=== PATIENT | female | born 1960 | race African-American/Black ===

== ENCOUNTER 2020-06-16 12:54 | Emergency (ER) | payer MEDICARE, MEDICAID ==
[~2020-06-16] VITALS: Ht 165.1 cm; Wt 64.0 kg
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
[2020-06-16] MEDS: IV NORMAL SALINE 1000ML BAG 1,000 ML IV ONE (15:47)
[2020-06-16 15:48] VITALS: BP 101/65
[2020-06-16] MEDS: MIDAZOLAM HCL/PF 5 MG/5 ML VIAL. NS ONE (15:49)
[2020-06-16] MEDS: ONDANSETRON PF 4 MG/2 ML VIAL. IVP ONE (15:49)
[2020-06-16] MEDS: PROPOFOL 10 MG/ML (20ML) VIAL. IV ONE (15:54)
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
--- NOTE | 2020-06-16 17:10 | RAD ---
SHOULDER 2+V LEFT 06/16/2020 4:23 PM INDICATION: Left shoulder dislocation COMPARISON: Left shoulder radiograph 06/16/2020. TECHNIQUE: 2 views left shoulder are provided. FINDINGS/ IMPRESSION: 1. Interval reduction of the left glenohumeral joint. Moderate osteoporosis with joint space narrowing and marginal osteophytosis of the left glenohumeral joint. 2. No acute fracture. Electronically signed by: Elvi Randall MD (06/16/2020 5:07 PM) [facility]
[2020-06-16 17:29] VITALS: BP 114/80
== END 2020-06-16 18:03 | disposition home or self-care (01) ==
LOC: ER 12:54
DX: S43.005A Unspecified dislocation of left shoulder joint, initial encounter (principal); E78.00 Pure hypercholesterolemia, unspecified; I10 Essential (primary) hypertension; E11.9 Type 2 diabetes mellitus without complications; F17.200 Nicotine dependence, unspecified, uncomplicated; Z86.73 Personal history of transient ischemic attack (TIA), and cerebral infarction without residual deficits; W18.39XA Other fall on same level, initial encounter; Y93.89 Activity, other specified; Y92.89 Other specified places as the place of occurrence of the external cause; Y99.8 Other external cause status
CPT/HCPCS: 23650; 73030; 96361; 96374; 99285; J2250; J2405; J2704; J7030

== ENCOUNTER 2020-11-17 15:59 | Emergency (ER) | payer OTHER, MEDICARE, MEDICAID ==
[~2020-11-17] VITALS: Ht 165.1 cm; Wt 65.0 kg
[2020-11-17 17:35] VITALS: BP 100/63
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
[2020-11-17] MEDS ORDERED: ORPH100T PO (18:25)
[2020-11-17] MEDS ORDERED: AZIT250T6 PO (18:25)
[2020-11-17] MEDS ORDERED: ACET1TAB33 PO (18:25)
--- NOTE | 2020-11-18 12:31 | NUR ---
IP: Informed pt of negative COVID test. Pt verbalized understanding.
== END 2020-11-17 18:50 | disposition home or self-care (01) ==
LOC: ER 15:59
DX: M54.2 Cervicalgia (principal); J18.9 Pneumonia, unspecified organism; E11.9 Type 2 diabetes mellitus without complications; E78.00 Pure hypercholesterolemia, unspecified; I10 Essential (primary) hypertension; I25.2 Old myocardial infarction; F17.290 Nicotine dependence, other tobacco product, uncomplicated; Z20.822 Contact with and (suspected) exposure to COVID-19; V43.52XA Car driver injured in collision with other type car in traffic accident, initial encounter; Y93.89 Activity, other specified; Y92.410 Unspecified street and highway as the place of occurrence of the external cause; Y99.8 Other external cause status
CPT/HCPCS: 70450; 72125; 99285; U0003; U0005; 99284-25